=== PATIENT | male | born 1965 | race African-American/Black ===

== ENCOUNTER 2017-06-14 08:24 | Day surgery (SDC) | payer OTHER ==
[~2017-06-14 08:24] MED LIST: LIDOCAINE 1% PF 2 ML VIAL. ID; MORPHINE SULFATE 2 MG/ML DISP.SYRIN. IV; ONDANSETRON PF 4 MG/2 ML VIAL. IV; POVIDONE-IODINE 10% TOPICAL OINTMENT 28GM TUBE. TP; PROCHLORPERAZINE 10 MG/2 ML VIAL. IV; fentaNYL PF VIAL 100 MCG/2 ML VIAL IV
[2017-06-14] MEDS ORDERED: PROPOFOL 20 ML IV (09:20)
[2017-06-14] MEDS ORDERED: MIDAZOLAM HCL/PF 2 MG/2 ML VIAL. (09:20)
[2017-06-14] MEDS ORDERED: DEXAMETHASONE SOD PHOS 20 MG/5 ML VIAL. (09:21)
[2017-06-14] MEDS ORDERED: ONDANSETRON PF 4 MG/2 ML VIAL. (09:21)
[2017-06-14] MEDS: IV RINGERS,LACTATED 1000ML 1,000 ML IV (09:28)
[2017-06-14] MEDS: BUPIVACAINE-EPI 0.25%-1:200000 50 ML VIAL. (10:40)
[2017-06-14] MEDS: NEOMY/BACITR/POLYMYXIN OINT PACKET. TP (10:42)
[2017-06-14] MEDS ORDERED: SEVOFLURANE 16 TO 30 MINUTES. IH (11:28)
== END 2017-06-14 12:10 | disposition home or self-care (01) ==
LOC: SURG 08:24
DX: K64.4 Residual hemorrhoidal skin tags (principal); I83.90 Asymptomatic varicose veins of unspecified lower extremity; F10.99 Alcohol use, unspecified with unspecified alcohol-induced disorder; F17.210 Nicotine dependence, cigarettes, uncomplicated
CPT/HCPCS: 46999; 88304; A4215; J0690; J1100; J2250; J2405; J2704; J3010